=== PATIENT | male | born 1975 | race Caucasian/White ===

== ENCOUNTER 2018-01-24 00:51 | Emergency (ER) | payer SELFPAY ==
[~2018-01-24] VITALS: Ht 170.2 cm; Wt 54.9 kg
[2018-01-24 01:02] VITALS: BP 125/88
== END 2018-01-24 04:50 | disposition left against medical advice (07) ==
LOC: ER 00:51
DX: Z53.21 Procedure and treatment not carried out due to patient leaving prior to being seen by health care provider (principal); F17.210 Nicotine dependence, cigarettes, uncomplicated

== ENCOUNTER 2021-05-22 18:40 | Emergency (ER) | payer MEDICAID ==
[~2021-05-22] VITALS: Ht 170.2 cm; Wt 98.0 kg
[2021-05-22] MEDS ORDERED: IBUPROFEN 600MG TABLET PO ONE (23:00)
[2021-05-22] MEDS ORDERED: T3 PO (23:30)
[2021-05-22] MEDS ORDERED: IBUP-2029 MT (23:30)
[2021-05-23 00:55] VITALS: BP 133/90
== END 2021-05-23 00:58 | disposition home or self-care (01) ==
LOC: ER 18:40
DX: S92.412A Displaced fracture of proximal phalanx of left great toe, initial encounter for closed fracture (principal); F14.10 Cocaine abuse, uncomplicated; F12.10 Cannabis abuse, uncomplicated; W06.XXXA Fall from bed, initial encounter; Y93.89 Activity, other specified; Y92.89 Other specified places as the place of occurrence of the external cause; Y99.8 Other external cause status
CPT/HCPCS: 29130; 73660; 99283; Z7610

== ENCOUNTER 2021-11-09 23:46 | Emergency (ER) | payer MEDICAID ==
[~2021-11-09] VITALS: Ht 180.3 cm; Wt 81.0 kg
[~2021-11-09 23:46] MED LIST: IBUP-2029 MT; T3 PO
[2021-11-09 23:51] VITALS: BP 136/84
[2021-11-10] MEDS ORDERED: BACITRACIN ZINC OINT UDPKT TOP ONE (00:15)
[2021-11-10] MEDS ORDERED: LIDOCAINE HCL/PF 1% 10 MG/ML 5ML VIAL INFIL ONE (00:15)
[2021-11-10] MEDS ORDERED: TETANUS, DIPHTHERIA, PERTUSSIS VAC/PF 0.5ML (>10YR OLD) IM ONE (00:15)
[2021-11-10] MEDS ORDERED: ACETAMINOPHEN 325MG TABLET PO ONE (00:15)
[2021-11-10] MEDS ORDERED: LIDOCAINE HCL 1% 20ML VIAL (Pyxis) INJ INFIL NR (01:30)
[2021-11-10] MEDS ORDERED: BO1 TP (02:11)
== END 2021-11-10 02:38 | disposition home or self-care (01) ==
LOC: ER 23:46 → CANBEDREQ 11-10 01:28 → ER 11-10 02:38
DX: S51.811A Laceration without foreign body of right forearm, initial encounter (principal); S11.81XA Laceration without foreign body of other specified part of neck, initial encounter; X99.1XXA Assault by knife, initial encounter; Y93.89 Activity, other specified; Y92.89 Other specified places as the place of occurrence of the external cause; F14.90 Cocaine use, unspecified, uncomplicated; F12.90 Cannabis use, unspecified, uncomplicated
CPT/HCPCS: 12002; 90471; 90715; 99283; A4217; J3490

== ENCOUNTER 2021-11-13 | Emergency (ER) | payer MEDICAID ==
[~2021-11-13] VITALS: Ht 170.2 cm; Wt 80.0 kg
[~2021-11-13] MED LIST changes: +BO1 TP
[2021-11-13 00:19] VITALS: BP 111/67
[2021-11-13] MEDS ORDERED: BO1 TP (00:26)
== END 2021-11-13 01:46 | disposition home or self-care (01) ==
LOC: ER
DX: Z48.00 Encounter for change or removal of nonsurgical wound dressing (principal)
CPT/HCPCS: 99281

== ENCOUNTER 2021-11-16 04:04 | Emergency (ER) | payer MEDICAID ==
[~2021-11-16] VITALS: Ht 170.2 cm; Wt 71.5 kg
[2021-11-16] MEDS ORDERED: CLIN300C12 MT (05:20)
[2021-11-16] MEDS ORDERED: DOXY100C5 MT (05:21)
[2021-11-16] MEDS ORDERED: MUPI1OIN4 TP (05:24)
[2021-11-16] MEDS ORDERED: CLINDAMYCIN PHOSPHATE 600MG/4ML VIAL IM ONE (05:30)
[2021-11-16 05:55] VITALS: BP 119/76
== END 2021-11-16 06:09 | disposition home or self-care (01) ==
LOC: ER 04:04
DX: S51.811A Laceration without foreign body of right forearm, initial encounter (principal); X58.XXXA Exposure to other specified factors, initial encounter; Y93.89 Activity, other specified; Y92.89 Other specified places as the place of occurrence of the external cause; Y99.8 Other external cause status; F10.229 Alcohol dependence with intoxication, unspecified; F14.10 Cocaine abuse, uncomplicated; F12.10 Cannabis abuse, uncomplicated; Z79.899 Other long term (current) drug therapy
CPT/HCPCS: 96372; 99283; J3490

== ENCOUNTER 2021-11-19 23:27 | Emergency (ER) | payer MEDICAID ==
[~2021-11-19] VITALS: Ht 170.2 cm; Wt 70.8 kg
[~2021-11-19 23:27] MED LIST changes: +CLIN300C12 MT; +DOXY100C5 MT; +MUPI1OIN4 TP
[2021-11-19] MEDS ORDERED: KETOROLAC 60MG/2ML VIAL IM STA (23:46)
[2021-11-20 00:07] VITALS: BP 123/89
[2021-11-20 00:44] LABS: BASOPHILS % 0.4 % (0.0-2.0); CHLORIDE 109 mEq/L (98-107); EOSINOPHILS % 0.3 % (0.0-5.0); HEMATOCRIT. 49.3 % (42.0-52.0); HEMOGLOBIN. 16.8 g/dL (14.0-18.0); LYMPHOCYTES % 14.3 % (20.0-50.0); MEAN CORPUSCULAR HEMOGLOBIN 34.7 pg (28.0-32.0); MEAN CORPUSCULAR VOLUME 101.7 fL (80.0-94.0); MEAN PLATELET VOLUME 7.6 fl (7.4-10.4); MONOCYTES % 3.3 % (2.0-8.0); NEUTROPHILS % 81.7 % (40.0-76.0); PLATELET 296 x1000/uL (130-400); RED BLOOD CELL COUNT 4.84 mill/uL (4.7-6.1); RED CELL DISTRIBUTION WIDTH 14.7 % (11.6-14.6)
[2021-11-20] MEDS ORDERED: LIDOCAINE HCL/EPINEPHRINE 1%-EPI 1:100,000 10 ML VIAL INFIL NR (01:30)
[2021-11-20] MEDS ORDERED: BACITRACIN ZINC OINT UDPKT TOP NR (01:30)
[2021-11-20] MEDS ORDERED: VANCOMYCIN 1G PREMIX 200 ML IV ONE (02:00)
[2021-11-20] MEDS ORDERED: VANCOMYCIN 1GM PMX (XELLIA) 200 ML IV NR (02:15)
== END 2021-11-20 03:14 | disposition home or self-care (01) ==
LOC: ER 23:27
DX: L02.413 Cutaneous abscess of right upper limb (principal); F12.10 Cannabis abuse, uncomplicated; F14.10 Cocaine abuse, uncomplicated; F10.21 Alcohol dependence, in remission
CPT/HCPCS: 36415; 80053; 85025; 96365; 96372; 99284; J1885; J3370

== ENCOUNTER 2021-11-22 01:18 | Emergency (ER) | payer MEDICAID ==
[~2021-11-22] VITALS: Ht 170.2 cm; Wt 56.2 kg
[2021-11-22 01:23] VITALS: BP 125/82
[2021-11-22] MEDS ORDERED: CLIN300C12 MT (02:12)
[2021-11-22] MEDS ORDERED: DOXY100C5 MT (02:12)
== END 2021-11-22 03:44 | disposition home or self-care (01) ==
LOC: ER 01:18
DX: Z48.00 Encounter for change or removal of nonsurgical wound dressing (principal)
CPT/HCPCS: 99282; 99283

== ENCOUNTER 2022-01-08 04:37 | Emergency (ER) | payer MEDICAID ==
[~2022-01-08] VITALS: Ht 167.6 cm; Wt 75.0 kg
[~2022-01-08 04:37] MED LIST changes: -IBUP-2029 MT; -T3 PO
[2022-01-08 04:47] VITALS: BP 136/98
[2022-01-08] MEDS ORDERED: LIDOCAINE HCL/EPINEPHRINE 1%-EPI 1:100,000 20 ML VIAL INFIL ONE (05:30)
[2022-01-08] MEDS ORDERED: LIDOCAINE HCL/EPINEPHRINE 1%-EPI 1:100,000 50 ML VIAL INFIL SCH (06:00)
[2022-01-08] MEDS ORDERED: TOPUD PO (06:59)
== END 2022-01-08 09:36 | disposition home or self-care (01) ==
LOC: ER 04:37
DX: S01.111A Laceration without foreign body of right eyelid and periocular area, initial encounter (principal); F14.10 Cocaine abuse, uncomplicated; F12.10 Cannabis abuse, uncomplicated; Y00.XXXA Assault by blunt object, initial encounter; Y93.89 Activity, other specified; Y92.018 Other place in single-family (private) house as the place of occurrence of the external cause
CPT/HCPCS: 12013; 99283; J3490

== ENCOUNTER 2022-01-27 03:54 | Emergency (ER) | payer MEDICAID ==
[~2022-01-27] VITALS: Ht 170.2 cm; Wt 64.6 kg
[~2022-01-27 03:54] MED LIST changes: +TOPUD PO
[2022-01-27 04:31] VITALS: BP 124/82
== END 2022-01-27 04:50 | disposition home or self-care (01) ==
LOC: ER 04:11
DX: S01.112D Laceration without foreign body of left eyelid and periocular area, subsequent encounter (principal); Z48.02 Encounter for removal of sutures; X58.XXXD Exposure to other specified factors, subsequent encounter
CPT/HCPCS: 99281

== ENCOUNTER 2022-03-09 23:46 | Emergency (ER) | payer MEDICAID ==
[~2022-03-09] VITALS: Ht 170.2 cm; Wt 65.2 kg
[~2022-03-09 23:46] MED LIST changes: +CLIN-194 MT; -CLIN300C12 MT
[2022-03-10 00:14] VITALS: BP 124/82
[2022-03-10] MEDS ORDERED: IBUP-2029 MT (01:59)
[2022-03-10] MEDS ORDERED: KETOROLAC 60MG/2ML VIAL IM ONE (02:00)
== END 2022-03-10 02:10 | disposition home or self-care (01) ==
LOC: ER 23:46
DX: R10.32 Left lower quadrant pain (principal); F14.10 Cocaine abuse, uncomplicated; F12.10 Cannabis abuse, uncomplicated; Z59.00 Homelessness unspecified; Z79.899 Other long term (current) drug therapy
CPT/HCPCS: 99281; 99282

== ENCOUNTER 2022-11-16 19:50 | Emergency (ER) | payer MEDICAID ==
[~2022-11-16] VITALS: Ht 170.2 cm; Wt 55.0 kg
[~2022-11-16 19:50] MED LIST changes: +IBUP-2028 MT; +IBUP-2029 MT
[2022-11-16 23:44] LABS: BASOPHILS % 0.9 % (0.0-2.0); EOSINOPHILS % 0.7 % (0.0-5.0); HEMATOCRIT. 45.8 % (42.0-52.0); HEMOGLOBIN. 16.1 g/dL (14.0-18.0); MEAN CORPUSCULAR HEMOGLOBIN 36.6 pg (28.0-32.0); MEAN CORPUSCULAR VOLUME 104.1 fL (80.0-94.0); MEAN PLATELET VOLUME 7.3 fl (7.4-10.4); MONOCYTES % 8.8 % (2.0-8.0); NEUTROPHILS % 47.6 % (40.0-76.0); PLATELET 270 x1000/uL (130-400); RED CELL DISTRIBUTION WIDTH 12.8 % (11.6-14.6)
[2022-11-17 00:12] LABS: CHLORIDE 104 mEq/L (98-107)
[2022-11-17 00:20] LABS: ETHANOL BLOOD 193 mg/dL
[2022-11-17 01:02] LABS: *AMPHETAMINES SCREEN URINE NEGATIVE (NEGATIVE); *BARBITURATES SCREEN URINE NEGATIVE (NEGATIVE); *BENZODIAZEPINES SCREEN URINE NEGATIVE (NEGATIVE); *COCAINE SCREEN URINE PRESUMTIVE POSITIVE (NEGATIVE); CANNABINOID URINE SCREEN PRESUMTIVE POSITIVE (NEGATIVE); METHADONE URINE SCREEN NEGATIVE (NEGATIVE); OPIATES URINE SCREEN NEGATIVE (NEGATIVE); PHENCYCLIDINE URINE SCREEN NEGATIVE (NEGATIVE)
[2022-11-17 04:00] VITALS: BP 116/83
[2022-11-17] MEDS ORDERED: KETOROLAC 30MG/ML VIAL IM ONE (04:00)
[2022-11-17 05:10] LABS: CLARITY URINE CLEAR (CLEAR); COLOR URINE YELLOW (YELLOW); PROTEIN URINE NEGATIVE (NEGATIVE); SPECIFIC GRAVITY URINE 1.017 (1.005-1.030)
[2022-11-17 05:11] LABS: KETONES URINE TRACE (NEGATIVE); LEUKOCYTE ESTERASE URINE 1+ (NEGATIVE); NITRITE URINE NEGATIVE (NEGATIVE); OCCULT BLOOD URINE 2+ (NEGATIVE)
[2022-11-17] MEDS ORDERED: NAPR-681 MT (05:32)
== END 2022-11-17 05:40 | disposition home or self-care (01) ==
LOC: ER 19:50
DX: R10.13 Epigastric pain (principal); R11.2 Nausea with vomiting, unspecified; F14.10 Cocaine abuse, uncomplicated; F12.10 Cannabis abuse, uncomplicated; Z79.899 Other long term (current) drug therapy
CPT/HCPCS: 36415; 74176; 80053; 80305; 80320; 81003; 83690; 85025; 96372; 99285; J1885; Z7610; G0480

== ENCOUNTER 2023-02-04 20:47 | Emergency (ER) | payer MEDICAID ==
[~2023-02-04] VITALS: Ht 172.7 cm; Wt 64.0 kg
[~2023-02-04 20:47] MED LIST changes: +NAPR-681 MT
[2023-02-04 20:49] VITALS: BP 143/88
[2023-02-04] MEDS ORDERED: LIDOCAINE HCL/EPINEPHRINE 1%-EPI 1:100,000 20 ML VIAL INFIL ONE (21:00)
[2023-02-04] MEDS ORDERED: BACITRACIN ZINC OINT UDPKT TOP ONE (21:00)
[2023-02-04] MEDS ORDERED: TETANUS, DIPHTHERIA, PERTUSSIS VAC/PF 0.5ML (>10YR OLD) IM ONE (21:15)
[2023-02-04] MEDS ORDERED: BACITRACIN ZINC OINT UDPKT TOP NR (23:15)
== END 2023-02-05 03:13 | disposition home or self-care (01) ==
LOC: ER 20:47
DX: S00.212A Abrasion of left eyelid and periocular area, initial encounter (principal); F10.129 Alcohol abuse with intoxication, unspecified; Y90.0 Blood alcohol level of less than 20 mg/100 ml; F14.10 Cocaine abuse, uncomplicated; F12.10 Cannabis abuse, uncomplicated; Z79.899 Other long term (current) drug therapy; W18.39XA Other fall on same level, initial encounter; Y93.89 Activity, other specified; Y92.89 Other specified places as the place of occurrence of the external cause; Y99.8 Other external cause status
CPT/HCPCS: 70450; 99284; J3490; Z7610

== ENCOUNTER 2023-07-29 07:08 | Emergency (ER) | payer MEDICAID ==
[~2023-07-29] VITALS: Ht 170.2 cm; Wt 60.5 kg
[2023-07-29 07:11] VITALS: BP 118/71; TEMP 98.6; O2SAT 97
[2023-07-29 08:04] VITALS: PULSE 89; RESP 16
== END 2023-07-29 08:30 | disposition home or self-care (01) ==
LOC: ER 07:08
DX: Z48.02 Encounter for removal of sutures (principal); F14.10 Cocaine abuse, uncomplicated; F12.10 Cannabis abuse, uncomplicated
CPT/HCPCS: 99281

== ENCOUNTER 2023-10-05 15:52 | Emergency (ER) | payer MEDICAID ==
[~2023-10-05] VITALS: Ht 167.6 cm; Wt 65.0 kg
[2023-10-05 15:57] VITALS: BP 117/78; PULSE 70; RESP 16; TEMP 98.6; O2SAT 99
[2023-10-05 19:18] LABS: BASOPHILS % 0.9 % (0.0-2.0); DIFFERENTIAL COMMENT 0; EOSINOPHILS % 0.6 % (0.0-5.0); HEMATOCRIT. 46.6 % (42.0-52.0); HEMOGLOBIN. 15.5 g/dL (14.0-18.0); LYMPHOCYTES % 38.3 % (20.0-50.0); MEAN CORPUSCULAR HEMOGLOBIN 35.3 pg (28.0-32.0); MEAN CORPUSCULAR HGB CONC 33.2 g/dL (31.0-37.0); MEAN CORPUSCULAR VOLUME 106.5 fL (80.0-94.0); MEAN PLATELET VOLUME 6.9 fl (7.4-10.4); MONOCYTES % 5.9 % (2.0-8.0); NEUTROPHILS % 54.3 % (40.0-76.0); PLATELET 231 x1000/uL (130-400); RED BLOOD CELL COUNT 4.37 mill/uL (4.7-6.1); RED CELL DISTRIBUTION WIDTH 13.5 % (11.6-14.6); WHITE BLOOD COUNT 3.7 x1000/uL (4.5-11.0)
[2023-10-05 19:35] LABS: ALANINE AMINOTRANSFERASE 57 IU/L (10-49); ALBUMIN 4.6 g/dL (3.2-4.8); ASPARTATE AMINOTRANSFERASE 102 IU/L (<34); BILIRUBIN TOTAL 0.7 mg/dL (0.1-1.0); CALCIUM 9.4 mg/dL (8.7-10.4); CARBON DIOXIDE 34 mEq/L (21-32); CHLORIDE 105 mEq/L (98-107); CREATININE 0.7 mg/dL (0.6-1.3); GLUCOSE 85 mg/dL (70-105); PROTEIN TOTAL 8.1 g/dL (6.0-8.3); SODIUM 144 mEq/L (136-145); UREA NITROGEN BLOOD 8 mg/dL (9-23)
[2023-10-05] MEDS ORDERED: IBUP-2029 MT (20:35)
== END 2023-10-05 23:52 | disposition home or self-care (01) ==
LOC: ER 15:52
DX: K40.90 Unilateral inguinal hernia, without obstruction or gangrene, not specified as recurrent (principal); F12.90 Cannabis use, unspecified, uncomplicated; F14.90 Cocaine use, unspecified, uncomplicated
CPT/HCPCS: 36415; 76857; 80053; 83605; 85025; 99284

== ENCOUNTER 2024-01-08 22:46 | Emergency (ER) | payer MEDICAID ==
[~2024-01-08] VITALS: Ht 170.2 cm; Wt 80.0 kg
[2024-01-08 22:58] VITALS: BP 124/82; PULSE 90; RESP 18; TEMP 97.7; O2SAT 98
== END 2024-01-09 03:22 | disposition home or self-care (01) ==
LOC: ER 22:46
DX: S09.90XA Unspecified injury of head, initial encounter (principal); F10.20 Alcohol dependence, uncomplicated; K40.90 Unilateral inguinal hernia, without obstruction or gangrene, not specified as recurrent; F14.10 Cocaine abuse, uncomplicated; F12.10 Cannabis abuse, uncomplicated; Z79.899 Other long term (current) drug therapy; X58.XXXA Exposure to other specified factors, initial encounter; Y93.89 Activity, other specified; Y92.89 Other specified places as the place of occurrence of the external cause; Y99.8 Other external cause status
CPT/HCPCS: 99284

== ENCOUNTER 2024-01-10 13:48 | Emergency (ER) | payer MEDICAID ==
[~2024-01-10] VITALS: Ht 175.3 cm; Wt 73.0 kg
[2024-01-10 13:52] VITALS: BP 146/90; PULSE 79; RESP 16; TEMP 98.5; O2SAT 97
== END 2024-01-10 14:17 | disposition home or self-care (01) ==
LOC: ER 14:17
DX: K40.90 Unilateral inguinal hernia, without obstruction or gangrene, not specified as recurrent (principal); F14.90 Cocaine use, unspecified, uncomplicated; F12.90 Cannabis use, unspecified, uncomplicated; F10.20 Alcohol dependence, uncomplicated; Y90.9 Presence of alcohol in blood, level not specified
CPT/HCPCS: 99283

== ENCOUNTER 2024-03-08 15:53 | Emergency (ER) | payer MEDICAID ==
[~2024-03-08] VITALS: Ht 182.9 cm; Wt 65.0 kg
[2024-03-08 16:08] VITALS: TEMP 98.4; O2SAT 98
[2024-03-08 17:32] LABS: BASOPHILS % 0.5 % (0.0-2.0); DIFFERENTIAL COMMENT 0; EOSINOPHILS % 0.5 % (0.0-5.0); HEMATOCRIT. 40.6 % (42.0-52.0); HEMOGLOBIN. 14.1 g/dL (14.0-18.0); MEAN CORPUSCULAR HEMOGLOBIN 36.6 pg (28.0-32.0); MEAN CORPUSCULAR HGB CONC 34.9 g/dL (31.0-37.0); MEAN CORPUSCULAR VOLUME 104.9 fL (80.0-94.0); MEAN PLATELET VOLUME 6.9 fl (7.4-10.4); MONOCYTES % 5.3 % (2.0-8.0); NEUTROPHILS % 63.7 % (40.0-76.0); PLATELET 286 x1000/uL (130-400); RED BLOOD CELL COUNT 3.87 mill/uL (4.7-6.1); WHITE BLOOD COUNT 4.3 x1000/uL (4.5-11.0)
[2024-03-08 17:41] LABS: CHLORIDE 106 mEq/L (98-107); POTASSIUM 3.3 mEq/L (3.5-5.1); SODIUM 142 mEq/L (136-145)
[2024-03-08 17:42] LABS: CARBON DIOXIDE 25 mEq/L (21-32)
[2024-03-08 17:47] LABS: CREATININE 0.7 mg/dL (0.6-1.3); GLUCOSE 80 mg/dL (70-105); UREA NITROGEN BLOOD 8 mg/dL (9-23)
[2024-03-08 17:49] LABS: INR 0.9; PROTHROMBIN TIME 10.3 sec (9.6-11.0)
[2024-03-08 19:00] VITALS: BP 134/79; PULSE 79; RESP 16
[2024-03-08] MEDS: POTASSIUM CHLORIDE 20MEQ TABLET SR PO ONE (21:00)
== END 2024-03-08 21:32 | disposition home or self-care (01) ==
LOC: ER 15:53
DX: K40.90 Unilateral inguinal hernia, without obstruction or gangrene, not specified as recurrent (principal); F14.10 Cocaine abuse, uncomplicated; Z79.899 Other long term (current) drug therapy
CPT/HCPCS: 36415; 74176; 80048; 83605; 85025; 99284

== ENCOUNTER 2024-03-23 12:45 | Emergency (ER) | payer MEDICAID ==
[~2024-03-23] VITALS: Ht 170.2 cm; Wt 77.0 kg
[2024-03-23 12:46] VITALS: O2SAT 98
[2024-03-23 13:21] LABS: DIFFERENTIAL COMMENT 0; EOSINOPHILS % 1.1 % (0.0-5.0); HEMATOCRIT. 41.9 % (42.0-52.0); HEMOGLOBIN. 14.4 g/dL (14.0-18.0); LYMPHOCYTES % 20.7 % (20.0-50.0); MEAN CORPUSCULAR HEMOGLOBIN 35.8 pg (28.0-32.0); MEAN CORPUSCULAR HGB CONC 34.3 g/dL (31.0-37.0); MEAN CORPUSCULAR VOLUME 104.2 fL (80.0-94.0); MONOCYTES % 5.4 % (2.0-8.0); NEUTROPHILS % 71.8 % (40.0-76.0); PLATELET 251 x1000/uL (130-400); RED BLOOD CELL COUNT 4.02 mill/uL (4.7-6.1); RED CELL DISTRIBUTION WIDTH 12.6 % (11.6-14.6); WHITE BLOOD COUNT 4.6 x1000/uL (4.5-11.0)
[2024-03-23 13:28] LABS: CHLORIDE 107 mEq/L (98-107); POTASSIUM 3.1 mEq/L (3.5-5.1); SODIUM 143 mEq/L (136-145)
[2024-03-23 13:29] LABS: CARBON DIOXIDE 29 mEq/L (21-32)
[2024-03-23 13:30] LABS: CALCIUM 9.7 mg/dL (8.7-10.4)
[2024-03-23 13:35] LABS: CREATININE 0.8 mg/dL (0.6-1.3); ETHANOL BLOOD 229 mg/dL (<10); GLUCOSE 111 mg/dL (70-105); UREA NITROGEN BLOOD 13 mg/dL (9-23)
[2024-03-23 13:36] LABS: ALANINE AMINOTRANSFERASE 46 IU/L (10-49); ASPARTATE AMINOTRANSFERASE 81 IU/L (<34)
[2024-03-23 13:37] LABS: ALBUMIN 4.7 g/dL (3.2-4.8); BILIRUBIN DIRECT 0.4 mg/dL (<=3.0); BILIRUBIN TOTAL 1.1 mg/dL (0.1-1.0); PROTEIN TOTAL 7.6 g/dL (6.0-8.3)
[2024-03-23] MEDS ORDERED: ONDANSETRON HCL 4MG/2ML INJ IV STA (14:59)
[2024-03-23] MEDS ORDERED: MORPHINE SULFATE 4 MG/ML INJ (FOR IV/IM USE) IV STA (14:59)
[2024-03-23 16:41] LABS: CLARITY URINE CLEAR (CLEAR); COLOR URINE DARK YELLOW (YELLOW); GLUCOSE URINE NEGATIVE (NEGATIVE); KETONES URINE NEGATIVE (NEGATIVE); LEUKOCYTE ESTERASE URINE NEGATIVE (NEGATIVE); NITRITE URINE NEGATIVE (NEGATIVE); OCCULT BLOOD URINE NEGATIVE (NEGATIVE); PROTEIN URINE 1+ (NEGATIVE); SPECIFIC GRAVITY URINE 1.028 (1.005-1.030)
[2024-03-23] MEDS: MORPHINE SULFATE 4 MG/ML INJ (FOR IV/IM USE) IV NR (16:46)
[2024-03-23] MEDS: ONDANSETRON HCL 4MG/2ML INJ IV NR (16:46)
[2024-03-23 16:55] LABS: *AMPHETAMINES SCREEN URINE PRESUMPTIVE POSITIVE (NEGATIVE); *BARBITURATES SCREEN URINE NEGATIVE (NEGATIVE); *BENZODIAZEPINES SCREEN URINE NEGATIVE (NEGATIVE); *COCAINE SCREEN URINE PRESUMPTIVE POSITIVE (NEGATIVE); CANNABINOID URINE SCREEN PRESUMPTIVE POSITIVE (NEGATIVE); ECSTASY MDMA SCREEN URINE NEGATIVE (NEGATIVE); METHADONE URINE SCREEN NEGATIVE (NEGATIVE); OPIATES URINE SCREEN NEGATIVE (NEGATIVE); PHENCYCLIDINE URINE SCREEN NEGATIVE (NEGATIVE)
[2024-03-23 16:57] LABS: SQUAMOUS EPITHELIAL CELL URINE FEW /lpf (RARE/1+); WBC URINE 0-2 /hpf (0-2)
[2024-03-23 16:58] LABS: BACTERIA URINE TRACE; CALCIUM OXALATE CRYSTALS URINE 1+ /lpf
[2024-03-23] MEDS: POTASSIUM CHLORIDE 20MEQ/PACKET PO ONE (17:50)
[2024-03-23 18:30] VITALS: BP 132/77; PULSE 63; RESP 17; TEMP 97.9
== END 2024-03-23 18:32 | disposition home or self-care (01) ==
LOC: ER 12:45
DX: K40.90 Unilateral inguinal hernia, without obstruction or gangrene, not specified as recurrent (principal); K80.20 Calculus of gallbladder without cholecystitis without obstruction; F10.229 Alcohol dependence with intoxication, unspecified; F14.10 Cocaine abuse, uncomplicated; Y90.7 Blood alcohol level of 200-239 mg/100 ml
CPT/HCPCS: 80076; 80305; 80048; 81003; 80320; 83690; 85025; 36415; 74176; 96374; 96375; 99285; J2405; J2270; Z7610 ×4; G0480

== ENCOUNTER 2024-05-09 22:40 | Emergency (ER) | payer MEDICAID ==
[~2024-05-09] VITALS: Ht 175.3 cm; Wt 65.0 kg
[2024-05-09 22:51] VITALS: O2SAT 96
[2024-05-09 23:55] LABS: BASOPHILS % 0.7 % (0.0-2.0); DIFFERENTIAL COMMENT 0; EOSINOPHILS % 0.7 % (0.0-5.0); HEMOGLOBIN. 12.9 g/dL (14.0-18.0); MEAN CORPUSCULAR HEMOGLOBIN 36.1 pg (28.0-32.0); MEAN CORPUSCULAR HGB CONC 33.9 g/dL (31.0-37.0); MEAN CORPUSCULAR VOLUME 106.4 fL (80.0-94.0); MEAN PLATELET VOLUME 6.9 fl (7.4-10.4); MONOCYTES % 6.1 % (2.0-8.0); NEUTROPHILS % 72.5 % (40.0-76.0); PLATELET 263 x1000/uL (130-400); RED BLOOD CELL COUNT 3.57 mill/uL (4.7-6.1); RED CELL DISTRIBUTION WIDTH 13.2 % (11.6-14.6); WHITE BLOOD COUNT 5.2 x1000/uL (4.5-11.0)
[2024-05-09 23:57] LABS: CHLORIDE 108 mEq/L (98-107); POTASSIUM 3.2 mEq/L (3.5-5.1); SODIUM 144 mEq/L (136-145)
[2024-05-09 23:58] LABS: CARBON DIOXIDE 26 mEq/L (21-32)
[2024-05-10 00:03] LABS: CREATININE 0.7 mg/dL (0.6-1.3); GLUCOSE 103 mg/dL (70-105); UREA NITROGEN BLOOD 11 mg/dL (9-23)
[2024-05-10 00:04] LABS: ETHANOL BLOOD 249 mg/dL (<10)
[2024-05-10 06:55] VITALS: BP 115/76; PULSE 87; RESP 16; TEMP 97.6
== END 2024-05-10 06:56 | disposition home or self-care (01) ==
LOC: ER 22:40
DX: S39.012A Strain of muscle, fascia and tendon of lower back, initial encounter (principal); S70.02XA Contusion of left hip, initial encounter; T51.91XA Toxic effect of unspecified alcohol, accidental (unintentional), initial encounter; F14.90 Cocaine use, unspecified, uncomplicated; W01.0XXA Fall on same level from slipping, tripping and stumbling without subsequent striking against object, initial encounter; Y93.89 Activity, other specified; Y92.89 Other specified places as the place of occurrence of the external cause; Y99.8 Other external cause status
CPT/HCPCS: 36415; 71045; 72100; 73502; 80048; 80320; 85025; 99285; G0480

== ENCOUNTER 2024-07-06 02:48 | Emergency (ER) | payer MEDICAID ==
[~2024-07-06] VITALS: Ht 170.2 cm; Wt 57.6 kg
[2024-07-06 02:53] VITALS: O2SAT 98
[2024-07-06] MEDS: NAPROXEN 250MG TABLET PO ONE (03:15)
[2024-07-06 03:25] LABS: BASOPHILS % 0.8 % (0.0-2.0); DIFFERENTIAL COMMENT 0; EOSINOPHILS % 0.7 % (0.0-5.0); HEMATOCRIT. 41.8 % (42.0-52.0); HEMOGLOBIN. 14.1 g/dL (14.0-18.0); LYMPHOCYTES % 22.4 % (20.0-50.0); MEAN CORPUSCULAR HEMOGLOBIN 35.9 pg (28.0-32.0); MEAN CORPUSCULAR HGB CONC 33.8 g/dL (31.0-37.0); MEAN CORPUSCULAR VOLUME 106.2 fL (80.0-94.0); MEAN PLATELET VOLUME 6.6 fl (7.4-10.4); MONOCYTES % 8.3 % (2.0-8.0); NEUTROPHILS % 67.8 % (40.0-76.0); PLATELET 271 x1000/uL (130-400); RED BLOOD CELL COUNT 3.93 mill/uL (4.7-6.1); WHITE BLOOD COUNT 4.2 x1000/uL (4.5-11.0)
[2024-07-06 03:29] LABS: CHLORIDE 106 mEq/L (98-107); POTASSIUM 3.8 mEq/L (3.5-5.1); SODIUM 140 mEq/L (136-145)
[2024-07-06 03:30] LABS: CALCIUM 9.3 mg/dL (8.7-10.4); CARBON DIOXIDE 30 mEq/L (21-32)
[2024-07-06 03:35] LABS: CREATININE 0.7 mg/dL (0.6-1.3); GLUCOSE 86 mg/dL (70-105); UREA NITROGEN BLOOD 8 mg/dL (9-23)
[2024-07-06 03:36] LABS: ETHANOL BLOOD 141 mg/dL (<10)
[2024-07-06 03:37] LABS: ALANINE AMINOTRANSFERASE 23 IU/L (10-49); ALBUMIN 4.6 g/dL (3.2-4.8); ASPARTATE AMINOTRANSFERASE 37 IU/L (<34); BILIRUBIN DIRECT 0.1 mg/dL (<=3.0); INR 0.9
[2024-07-06 03:38] LABS: BILIRUBIN TOTAL 0.4 mg/dL (0.1-1.0); PROTEIN TOTAL 7.5 g/dL (6.0-8.3)
[2024-07-06 03:41] LABS: CLARITY URINE CLEAR (CLEAR); COLOR URINE YELLOW (YELLOW); GLUCOSE URINE NEGATIVE (NEGATIVE); KETONES URINE NEGATIVE (NEGATIVE); LEUKOCYTE ESTERASE URINE 2+ (NEGATIVE); NITRITE URINE NEGATIVE (NEGATIVE); OCCULT BLOOD URINE NEGATIVE (NEGATIVE); PH URINE 7.5 (4.5-8.0); PROTEIN URINE TRACE (NEGATIVE); SPECIFIC GRAVITY URINE 1.015 (1.005-1.030)
[2024-07-06 03:50] LABS: *AMPHETAMINES SCREEN URINE NEGATIVE (NEGATIVE); *BARBITURATES SCREEN URINE NEGATIVE (NEGATIVE); *BENZODIAZEPINES SCREEN URINE NEGATIVE (NEGATIVE); *COCAINE SCREEN URINE PRESUMPTIVE POSITIVE (NEGATIVE); CANNABINOID URINE SCREEN NEGATIVE (NEGATIVE); ECSTASY MDMA SCREEN URINE NEGATIVE (NEGATIVE); METHADONE URINE SCREEN NEGATIVE (NEGATIVE); OPIATES URINE SCREEN NEGATIVE (NEGATIVE); PHENCYCLIDINE URINE SCREEN NEGATIVE (NEGATIVE)
[2024-07-06] MEDS ORDERED: IBUP-2029 MT (03:55)
[2024-07-06] MEDS: MAGNESIUM/ALUMINUM HYDROXIDE/SIMETHICONE 30ML UDC PO STA (04:04)
[2024-07-06 04:53] LABS: RBC URINE 0-2 /hpf (0-2)
[2024-07-06 04:54] LABS: BACTERIA URINE TRACE; SQUAMOUS EPITHELIAL CELL URINE RARE /lpf (RARE/1+)
[2024-07-06] MEDS: KETOROLAC 15MG/ML VIAL IV ONE (04:54)
[2024-07-06 05:25] VITALS: BP 105/68; PULSE 65; RESP 20; TEMP 36.55848; O2SAT 97
== END 2024-07-06 05:28 | disposition home or self-care (01) ==
LOC: ER 03:01
DX: K40.90 Unilateral inguinal hernia, without obstruction or gangrene, not specified as recurrent (principal); F14.10 Cocaine abuse, uncomplicated; Z00.00 Encounter for general adult medical examination without abnormal findings; Z79.899 Other long term (current) drug therapy
CPT/HCPCS: 80076; 80305; 80048; 81003; 80320; 83690; 85025; 85610; 36415; 96374; 99283; J1885; Z7610; G0480

== ENCOUNTER 2024-08-03 18:12 | Emergency (ER) | payer MEDICAID ==
[~2024-08-03] VITALS: Ht 167.6 cm; Wt 59.0 kg
[2024-08-03 18:17] VITALS: O2SAT 100
[2024-08-04 01:16] LABS: BASOPHILS % 0.7 % (0.0-2.0); DIFFERENTIAL COMMENT 0; EOSINOPHILS % 1.4 % (0.0-5.0); HEMOGLOBIN. 15.8 g/dL (14.0-18.0); LYMPHOCYTES % 27.7 % (20.0-50.0); MEAN CORPUSCULAR HEMOGLOBIN 36.7 pg (28.0-32.0); MEAN CORPUSCULAR HGB CONC 34.3 g/dL (31.0-37.0); MEAN CORPUSCULAR VOLUME 106.9 fL (80.0-94.0); MEAN PLATELET VOLUME 6.6 fl (7.4-10.4); MONOCYTES % 6.3 % (2.0-8.0); NEUTROPHILS % 63.9 % (40.0-76.0); PLATELET 259 x1000/uL (130-400); RED CELL DISTRIBUTION WIDTH 12.9 % (11.6-14.6); WHITE BLOOD COUNT 4.1 x1000/uL (4.5-11.0)
[2024-08-04 01:17] LABS: CLARITY URINE CLEAR (CLEAR); COLOR URINE YELLOW (YELLOW); GLUCOSE URINE NEGATIVE (NEGATIVE); KETONES URINE NEGATIVE (NEGATIVE); LEUKOCYTE ESTERASE URINE NEGATIVE (NEGATIVE); NITRITE URINE NEGATIVE (NEGATIVE); OCCULT BLOOD URINE NEGATIVE (NEGATIVE); PH URINE 5.5 (4.5-8.0); PROTEIN URINE TRACE (NEGATIVE); SPECIFIC GRAVITY URINE 1.019 (1.005-1.030)
[2024-08-04 01:33] LABS: ALANINE AMINOTRANSFERASE 43 IU/L (10-49)
[2024-08-04] MEDS: KETOROLAC 30MG/ML VIAL IM ONE (01:33)
[2024-08-04 01:34] LABS: ALBUMIN 4.8 g/dL (3.2-4.8); ASPARTATE AMINOTRANSFERASE 68 IU/L (<34); BILIRUBIN DIRECT 0.1 mg/dL (<=3.0); BILIRUBIN TOTAL 0.5 mg/dL (0.1-1.0); PROTEIN TOTAL 8.1 g/dL (6.0-8.3)
[2024-08-04 02:32] LABS: SQUAMOUS EPITHELIAL CELL URINE FEW /lpf (RARE/1+)
[2024-08-04 02:34] LABS: BACTERIA URINE NONE SEEN; RBC URINE 0-2 /hpf (0-2); WBC URINE 0-2 /hpf (0-2)
[2024-08-04 04:12] VITALS: BP 140/82; PULSE 70; RESP 16; TEMP 37.05852; O2SAT 100
== END 2024-08-04 04:15 | disposition home or self-care (01) ==
LOC: ER 18:12
DX: K40.90 Unilateral inguinal hernia, without obstruction or gangrene, not specified as recurrent (principal); F10.20 Alcohol dependence, uncomplicated; F14.10 Cocaine abuse, uncomplicated; Z79.899 Other long term (current) drug therapy; Z79.1 Long term (current) use of non-steroidal anti-inflammatories (NSAID); Y90.9 Presence of alcohol in blood, level not specified
CPT/HCPCS: 99285; 80076; 81003; 83690; 85025; 36415; 74176; 96372; J1885; Z7610

== ENCOUNTER 2024-08-18 22:57 | Emergency (ER) | payer MEDICAID ==
[~2024-08-18] VITALS: Ht 175.3 cm; Wt 81.0 kg
[~2024-08-18 22:57] MED LIST changes: +CHLO25CA11 MT; +FOLI-43 MT; +MULT-622 MT; +THIA100T88 MT
[2024-08-18 23:02] VITALS: TEMP 96.8; O2SAT 98
[2024-08-18] MEDS ORDERED: CHLORHEXIDINE GLUCONATE 0.12% ORAL MOUTHWASH SSP SCH (23:30)
[2024-08-19] MEDS: ACETAMINOPHEN 500MG TABLET PO ONE (00:19)
[2024-08-19] MEDS ORDERED: ACET-2708 MT (00:56)
[2024-08-19] MEDS ORDERED: CHLO473M2 MT (00:56)
[2024-08-19 01:00] VITALS: BP 118/65; PULSE 76; RESP 16; O2SAT 100
== END 2024-08-19 01:00 | disposition home or self-care (01) ==
LOC: ER 22:57
DX: S03.2XXA Dislocation of tooth, initial encounter (principal); S00.83XA Contusion of other part of head, initial encounter; S00.511A Abrasion of lip, initial encounter; Z79.899 Other long term (current) drug therapy; Y04.0XXA Assault by unarmed brawl or fight, initial encounter; Y93.89 Activity, other specified; Y92.89 Other specified places as the place of occurrence of the external cause; Y99.8 Other external cause status
CPT/HCPCS: 70486; 99284

== ENCOUNTER 2025-02-19 03:21 | Emergency (ER) | payer MEDICAID ==
[~2025-02-19] VITALS: Ht 170.2 cm; Wt 74.7 kg
[~2025-02-19 03:21] MED LIST changes: +ACET-2708 MT; +CHLO473M2 MT
[2025-02-19 03:33] VITALS: O2SAT 98
[2025-02-19] MEDS: KETOROLAC 30MG/ML VIAL IM ONE (05:41)
[2025-02-19] MEDS ORDERED: KETO10TA2 MT (06:05)
[2025-02-19 06:22] VITALS: BP 110/64; PULSE 89; RESP 19; TEMP 37.1; O2SAT 99
== END 2025-02-19 06:23 | disposition home or self-care (01) ==
LOC: ER 03:21
DX: K40.90 Unilateral inguinal hernia, without obstruction or gangrene, not specified as recurrent (principal); F10.90 Alcohol use, unspecified, uncomplicated; Z79.899 Other long term (current) drug therapy; Z79.1 Long term (current) use of non-steroidal anti-inflammatories (NSAID); Y90.9 Presence of alcohol in blood, level not specified
CPT/HCPCS: 99283; 96372; J1885

== ENCOUNTER 2025-05-21 20:46 | Emergency (ER) | payer MEDICAID ==
[~2025-05-21] VITALS: Ht 172.7 cm; Wt 80.0 kg
[~2025-05-21 20:46] MED LIST changes: +KETO10TA2 MT
[2025-05-21 20:56] VITALS: O2SAT 96
[2025-05-21] MEDS ORDERED: TETANUS, DIPHTHERIA, PERTUSSIS VAC/PF 0.5ML (>10YR OLD) IM ONE (21:00)
[2025-05-21 21:32] LABS: BASOPHILS % 0.6 % (0.0-2.0); EOSINOPHILS % 0.6 % (0.0-5.0); HEMATOCRIT. 41.0 % (42.0-52.0); HEMOGLOBIN. 14.5 g/dL (14.0-18.0); LYMPHOCYTES % 31.2 % (20.0-50.0); MEAN PLATELET VOLUME 7.3 fl (7.4-10.4); MONOCYTES % 9.5 % (2.0-8.0); NEUTROPHILS % 58.1 % (40.0-76.0); PLATELET 207 x1000/uL (130-400); RED BLOOD CELL COUNT 3.86 mill/uL (4.7-6.1); RED CELL DISTRIBUTION WIDTH 12.8 % (11.6-14.6)
[2025-05-21 21:45] LABS: CREATININE 0.9 mg/dL (0.6-1.3)
[2025-05-21 21:46] LABS: UREA NITROGEN BLOOD 10 mg/dL (9-23)
[2025-05-21 21:47] LABS: ASPARTATE AMINOTRANSFERASE 65 IU/L (<34)
[2025-05-21 21:48] LABS: BILIRUBIN TOTAL 0.7 mg/dL (0.1-1.0); PROTEIN TOTAL 7.5 g/dL (6.0-8.3)
[2025-05-21] MEDS: TETANUS, DIPHTHERIA, PERTUSSIS VAC/PF 0.5ML (>10YR OLD) IM ONE (23:02)
[2025-05-21 23:45] VITALS: TEMP 36.8
[2025-05-22] MEDS: ACETAMINOPHEN 325MG TABLET PO ONE (01:16)
[2025-05-22] MEDS: LIDOCAINE HCL 1% 20ML VIAL INFIL ONE (01:38)
[2025-05-22 02:08] VITALS: BP 109/77; PULSE 71; RESP 16; O2SAT 98
== END 2025-05-22 02:11 | disposition home or self-care (01) ==
LOC: ER 20:46
DX: S01.411A Laceration without foreign body of right cheek and temporomandibular area, initial encounter (principal); F10.129 Alcohol abuse with intoxication, unspecified; Z79.1 Long term (current) use of non-steroidal anti-inflammatories (NSAID); Z79.899 Other long term (current) drug therapy; Z23 Encounter for immunization; Y08.89XA Assault by other specified means, initial encounter; Y93.89 Activity, other specified; Y92.89 Other specified places as the place of occurrence of the external cause; Y99.8 Other external cause status; Y90.9 Presence of alcohol in blood, level not specified
CPT/HCPCS: 80053; 85025; 36415; 70450; 70486; 90715; 12011; 90471; 99285; Z7610 ×2; J2003

== ENCOUNTER 2025-05-26 02:16 | Emergency (ER) | payer MEDICAID ==
[~2025-05-26] VITALS: Ht 170.2 cm; Wt 58.1 kg
[2025-05-26 02:44] VITALS: O2SAT 98
[2025-05-26 02:45] VITALS: BP 112/66; PULSE 104; RESP 18; TEMP 36.6; O2SAT 97
== END 2025-05-26 10:59 | disposition home or self-care (01) ==
LOC: ER 02:16
DX: S01.411D Laceration without foreign body of right cheek and temporomandibular area, subsequent encounter (principal); F10.90 Alcohol use, unspecified, uncomplicated; Z79.1 Long term (current) use of non-steroidal anti-inflammatories (NSAID); X58.XXXD Exposure to other specified factors, subsequent encounter; Y90.9 Presence of alcohol in blood, level not specified
CPT/HCPCS: 99281; Z7610

== ENCOUNTER 2025-05-28 18:46 | Emergency (ER) | payer MEDICAID ==
[~2025-05-28] VITALS: Ht 165.1 cm; Wt 70.0 kg
[2025-05-28 18:50] VITALS: O2SAT 95
[2025-05-28 19:59] LABS: BASOPHILS % 1.0 % (0.0-2.0); EOSINOPHILS % 0.6 % (0.0-5.0); HEMATOCRIT. 38.2 % (42.0-52.0); HEMOGLOBIN. 13.2 g/dL (14.0-18.0); LYMPHOCYTES % 26.9 % (20.0-50.0); MEAN PLATELET VOLUME 6.7 fl (7.4-10.4); MONOCYTES % 8.0 % (2.0-8.0); NEUTROPHILS % 63.5 % (40.0-76.0); PLATELET 241 x1000/uL (130-400); RED BLOOD CELL COUNT 3.59 mill/uL (4.7-6.1); RED CELL DISTRIBUTION WIDTH 12.9 % (11.6-14.6)
[2025-05-28 20:17] LABS: UREA NITROGEN BLOOD 12 mg/dL (9-23)
[2025-05-28 20:18] LABS: CREATININE 0.8 mg/dL (0.6-1.3)
[2025-05-28 20:19] LABS: ETHANOL BLOOD 300 mg/dL (<10)
[2025-05-28 20:20] LABS: ASPARTATE AMINOTRANSFERASE 72 IU/L (<34); BILIRUBIN DIRECT 0.2 mg/dL (<=3.0); BILIRUBIN TOTAL 0.6 mg/dL (0.1-1.0); PROTEIN TOTAL 6.9 g/dL (6.0-8.3)
[2025-05-28] MEDS: FOLIC ACID 1 MG, THIAMINE HCL 100 MG, MVI, ADULT NO.1 10 ML in DEXTROSE 5% WATER 1,000 ML IV ONE (20:46)
[2025-05-28 22:54] VITALS: BP 92/55; PULSE 70; RESP 18; TEMP 36.8; O2SAT 97
== END 2025-05-28 23:15 | disposition short-term general hospital (02) ==
LOC: ER 18:46 → EDBEDREQ 20:15 → EDBEDREQTM 20:15 → ER 23:15 → CMPBEDREQ 05-29 09:55
DX: F10.129 Alcohol abuse with intoxication, unspecified (principal); Z79.1 Long term (current) use of non-steroidal anti-inflammatories (NSAID); Z79.899 Other long term (current) drug therapy; Y08.89XA Assault by other specified means, initial encounter; Y93.89 Activity, other specified; Y92.89 Other specified places as the place of occurrence of the external cause; Y99.8 Other external cause status; Y90.9 Presence of alcohol in blood, level not specified
CPT/HCPCS: 80076; 80048; 80320; 83735; 85025; 36415; 71045; 96365; 99285; J3490 ×2; J3411; J7070; G0480

== ENCOUNTER 2025-06-23 20:17 | Emergency (ER) | payer MEDICAID ==
[~2025-06-23] VITALS: Ht 170.2 cm; Wt 59.0 kg
[~2025-06-23 20:17] MED LIST changes: -ACET-2708 MT; -BO1 TP; -CHLO25CA11 MT; -CHLO473M2 MT; -CLIN-194 MT; -DOXY100C5 MT; -IBUP-2028 MT; -IBUP-2029 MT; -KETO10TA2 MT; -MUPI1OIN4 TP; -NAPR-681 MT; -TOPUD PO
[2025-06-23 21:04] VITALS: O2SAT 98
[2025-06-23] MEDS ORDERED: KETOROLAC 15MG/ML VIAL IM ONE (21:30)
[2025-06-23 21:44] LABS: BASOPHILS % 1.1 % (0.0-2.0); EOSINOPHILS % 1.0 % (0.0-5.0); HEMATOCRIT. 38.1 % (42.0-52.0); HEMOGLOBIN. 12.9 g/dL (14.0-18.0); LYMPHOCYTES % 28.1 % (20.0-50.0); MEAN PLATELET VOLUME 6.7 fl (7.4-10.4); MONOCYTES % 10.2 % (2.0-8.0); NEUTROPHILS % 59.6 % (40.0-76.0); PLATELET 214 x1000/uL (130-400); RED BLOOD CELL COUNT 3.61 mill/uL (4.7-6.1); RED CELL DISTRIBUTION WIDTH 12.8 % (11.6-14.6)
[2025-06-23 21:55] LABS: CLARITY URINE CLOUDY (CLEAR); COLOR URINE YELLOW (YELLOW); GLUCOSE URINE NEGATIVE (NEGATIVE); KETONES URINE NEGATIVE (NEGATIVE); LEUKOCYTE ESTERASE URINE NEGATIVE (NEGATIVE); NITRITE URINE NEGATIVE (NEGATIVE); OCCULT BLOOD URINE NEGATIVE (NEGATIVE); PH URINE 7.0 (4.5-8.0); PROTEIN URINE NEGATIVE (NEGATIVE); SPECIFIC GRAVITY URINE 1.018 (1.005-1.030); UROBILINOGEN URINE 1.0 E.U./dL (0.2-1.0)
[2025-06-23 21:58] LABS: CREATININE 1.0 mg/dL (0.6-1.3); UREA NITROGEN BLOOD 11 mg/dL (9-23)
[2025-06-23 22:03] LABS: BACTERIA URINE 1+; RBC URINE 0-2 /hpf (0-2); SQUAMOUS EPITHELIAL CELL URINE 1+ /lpf (RARE/1+); WBC URINE 0-2 /hpf (0-2)
[2025-06-23 23:10] LABS: ASPARTATE AMINOTRANSFERASE 74 IU/L (<34)
[2025-06-23 23:11] LABS: BILIRUBIN DIRECT 0.1 mg/dL (<=3.0); BILIRUBIN TOTAL 0.5 mg/dL (0.1-1.0); PROTEIN TOTAL 7.2 g/dL (6.0-8.3)
[2025-06-23] MEDS ORDERED: NAPR-1176 MT (23:43)
[2025-06-23 23:50] VITALS: TEMP 36.6; O2SAT 98
[2025-06-23 23:52] VITALS: BP 105/69; PULSE 54; RESP 16
[2025-06-23] MEDS: KETOROLAC 15MG/ML VIAL IM NR (23:52)
== END 2025-06-23 23:53 | disposition home or self-care (01) ==
LOC: ER 20:17
DX: K40.90 Unilateral inguinal hernia, without obstruction or gangrene, not specified as recurrent (principal); D64.9 Anemia, unspecified; F10.20 Alcohol dependence, uncomplicated; Z79.899 Other long term (current) drug therapy; Y90.9 Presence of alcohol in blood, level not specified
CPT/HCPCS: 99285; 74176; 80076; 80048; 81003; 83690; 85025; 36415; 93005; 96372; J1885